=== PATIENT | female | born 1995 | race Caucasian/White ===

== ENCOUNTER → 2017-06-18 14:25 | Observation (INO) ==
[2017-06-18 13:41] LABS: Bilirubin,Urine Negative (Negative); Blood,Urine Negative (Negative); Clarity,Urine Cloudy (Clear); Color,Urine Yellow (Yellow); Glucose,Urine (UA) Normal (Normal); Ketones,Urine Negative (Negative); Leukocyte Esterase,Urine Moderate (Negative); Nitrite,Urine Negative (Negative); PH,Urine 7.5 pH Units (5.0-8.0); Protein,Urine Negative (Neg-Trace); Urobilinogen,Urine Normal (Normal)
[2017-06-18 13:45] LABS: Bacteria,Urine Few per hpf (None-Few); Hyaline Casts,Urine None Seen per lpf (None-Few); RBC,Urine 0-3 per hpf (0-3); Squamous Epithelial Cell,Urine Many per lpf (None-Few); WBC,Urine 15-30 per hpf (0-3)
[2017-06-18 13:55] LABS: Amphetamine Screen,Urine Negative ng/mL (Cutoff=1000); Barbiturate Screen,Urine Negative ng/mL (Cutoff=200); Benzodiazepines Screen,Urine Negative ng/mL (Cutoff=200); Cannabinoid Screen,Urine Positive ng/mL (Cutoff = 50); Cocaine Screen,Urine Negative ng/mL (Cutoff= 300); Opiate Screen,Urine Negative ng/mL (Cutoff=300); Phencyclidine Screen,Urine Negative ng/mL (Cutoff=25)
--- NOTE | 2017-06-18 14:26 | OB/GYN Progress Note ---
Date of Encounter: 06/18/17 Time of Encounter: 14:18 - Assessment and Plan (1) Round ligament pain Current Visit: Yes Status: Acute Patient monitored for an hour, FHR 150's with moderate variability, cat 1 tracing. UA grossly contaminated, sent for culture. Advised patient that if culture grows anything we will call her and treat. Advised patient to purchase a maternity belt and wear it when she is up and active to help alleviate the pressure on the round ligament. Advised patient that chiropractic treatments could also help alleviate her pain. All questions were answered, patient agreeable to plan and will be discharged home. (2) 28 weeks gestation of Current Visit: Yes Status: Chronic Subjective - Subjective Principal diagnosis: Round ligament pain Interval history: Ms. Dillon is a 21 y/o F at 28 0/7 weeks who presents to L&D for evaluation of lower abdominal pain x4 days. She describes the pain as the pressure you feel when you are picking something heavy up and have to strain because it is too heavy. She has had a sore throat and wheezing for the last week. She has had nausea today and vomited twice. She still is smoking intermittently. She states that she has not had any vaginal fluid leaking, vaginal bleeding, foul smelling discharge or itching. She has good movement. She denies fevers, chills, cp, sob, dysuria, burning with urination, diarrhea. Antepartum ROS: new complaints, movement normal, no loss of fluid, no vaginal bleeding, no contractions Objective - Vital Signs Vital Signs: Intake and Output 06/17/17 06/18/17 06/18/17 23:59 07:59 15:59 Other: Weight 66.3 kg Patient Weight 06/18/17 23:59 Weight 66.3 kg - Exam FHR: auscultation normal, category 1 FHR comments: FHR 150's with moderate variability Auscultation: bilateral: normal Abdomen: Present: normal appearance, soft, gravid, tenderness (suprapubic, LLQ, RLQ) Uterus: Present: normal, firm - Labs Labs: Abnormal lab results Urine Clarity Cloudy (Clear) A 06/18/17 13:29 Ur Leukocyte Esterase Moderate (Negative) H 06/18/17 13:29 Urine Microscopic WBC 15-30 per hpf (0-3) H 06/18/17 13:29 Ur Squamous Epith Cells Many per lpf (None-Few) H 06/18/17 13:29 Ur Culture Indicated? YES (NO) A 06/18/17 13:29 U Marijuana (THC) Screen Positive ng/mL (Cutoff = 50) H 06/18/17 13:29 - Allied health notes Allied health notes reviewed: nursing
== END | disposition home or self-care (01) ==
LOC: 1NENULAB
PROVIDERS: ADMIT Obstetrics & Gynecology; ATTEND Obstetrics & Gynecology

== ENCOUNTER 2017-08-15 14:19 | Inpatient (IN) ==
[2017-08-15 15:16] LABS: Bilirubin,Urine Small (Negative); Blood,Urine Negative (Negative); Clarity,Urine Cloudy (Clear); Color,Urine Dark Yellow (Yellow); Glucose,Urine (UA) Normal (Normal); Ketones,Urine 15 mg/dL (Negative); Leukocyte Esterase,Urine Large (Negative); Nitrite,Urine Negative (Negative); PH,Urine 6.5 pH Units (5.0-8.0); Protein,Urine Trace mg/dL (Neg-Trace); Specific Gravity,Urine 1.019 (1.010-1.025); Urobilinogen,Urine Normal (Normal)
[2017-08-15 15:17] LABS: Bacteria,Urine Many per hpf (None-Few); Hyaline Casts,Urine Few per lpf (None-Few); Squamous Epithelial Cell,Urine Many per lpf (None-Few); WBC,Urine 50-100 per hpf (0-3)
[2017-08-15 15:27] LABS: Amphetamine Screen,Urine Negative ng/mL (Cutoff=1000); Barbiturate Screen,Urine Negative ng/mL (Cutoff=200); Benzodiazepines Screen,Urine Negative ng/mL (Cutoff=200); Cannabinoid Screen,Urine Positive ng/mL (Cutoff = 50); Cocaine Screen,Urine Negative ng/mL (Cutoff= 300); Opiate Screen,Urine Negative ng/mL (Cutoff=300); Phencyclidine Screen,Urine Negative ng/mL (Cutoff=25)
[2017-08-15 15:36] LABS: RBC,Urine 0-3 per hpf (0-3)
[2017-08-15] MEDS ORDERED: Famotidine 20 MG/2 ML VIAL IVP PRN (15:47)
[2017-08-15] MEDS ORDERED: Naloxone 0.4 MG/ML INJ IVP PRN (15:47)
[2017-08-15] MEDS ORDERED: Penicillin G Potassium 5,000,000 UNIT in 0.9 % Sodium Chloride Mini Bag 100 ML IVPB ONE (15:52)
[2017-08-15] MEDS ORDERED: Ringers Solution, Lactated 1,000 ML IVC SCH (16:00)
[2017-08-15 16:05] LABS: Basophils % 0.2 %; Eosinophils # 0.1 K/mcL (0.0-0.6); Eosinophils % 0.5 %; Hematocrit 34.7 % (35.3-44.9); Hemoglobin 11.9 g/dL (11.5-15.4); Immature Granulocytes % 0.3 % (0-4); Lymphocytes # 1.8 K/mcL (0.6-4.6); Lymphocytes % 19.2 %; Mean Corpuscular HGB Conc 34.3 g/dL (31.6-35.5); Mean Corpuscular Hemoglobin 29.8 pg (28.0-33.3); Mean Corpuscular Volume 86.8 fL (83.0-100.0); Mean Platelet Volume 10.7 fL (9.4-12.4); Monocytes # 0.8 K/mcL (0.0-1.3); Monocytes % 8.2 %; Neutrophils # 6.8 K/mcL (1.6-8.9); Platelet Count 251 K/mcL (140-400); Red Cell Distribution Width 13.1 % (11.5-14.5); Segmented Neutrophils % 71.6 %
--- NOTE | 2017-08-15 16:07 | OB/GYN History & Physical ---
Date of Encounter: 08/15/17 Time of Encounter: 16:01 Assessment and Plan (1) 36 weeks gestation of Current visit: Yes Status: Acute (2) Tobacco use affecting in third trimester, antepartum Current visit: Yes Status: Acute (3) labor in third trimester without delivery Current visit: No Status: Acute Admit for labor at 6cm/100/-1 GBS ppx. Epidural when requested. Anticipate (4) GBS screening not performed Current visit: Yes Status: Acute PCN ppx History of Present Illness Chief complaint: contractions HPI: Ms. Dillon is a 21 year old female presenting at 36w2d with c/o contractions since 9pm last evening. She also reports a couple small gushes of clear discharge. Good FM. No other complaints today. EFW 20% last week in office. also complicated by itching but bile acids WNL. She does have some old bite dixon that are concerning for bedbugs. She does admit to smoking 1 /2 PPD and her UDS was positive for marijuana. Blood type B negative. Rubella non-immune Serologies negative GBS unknown, rapid collected today Past Med Surg Social Fam HX - Past Medical History Medical history: no medical history Psychiatric history: anxiety - Past Surgical History Surgical History: other - Social History Smoking Status: Current every day smoker Packs per day: 0.5 Smokeless Tobacco Status: No Alcohol use: none Drug use: marijuana - Family History Grandmother Family Member Ethnicity: Non- Living Status: Still Living Hx Family Cardiac Disorders: No Hx Family Respiratory Disorders: No Hx Family Cancer: No Hx Family GI Disorders: No Hx Family Endocrine Disorder: No Hx Family Neuromuscular Disorders: No Hx Family Neurologic Disorders: No Hx Family HEENT Disorders: No Hx Family Autoimmune Disorders: No Obstetrical History - Pregnancies : 2 Para: 1 Term: 0 : 1 Ab's: 0 Livin - History/Complications History/Complications: Previous delivery at 35 weeks gestation Medications and Allergies Pediatric Multivit Comb. No.49 [Flintstones Gummies] 1 each PO DAILY 05/26/16 [ History] 3 Allergy/AdvReac Type Severity Reaction Status Date / Time No Known Allergies Allergy Verified 12/10/15 17:27 Review of System OB All systems PM: reviewed and no additional remarkable complaints except as stated Exam - Constitutional Constitutional: well developed, well nourished, mild distress - HEENT HEENT: Mucus Membranes Moist - Lungs Respiratory exam: CTAB - Cardiovascular Cardiovascular exam: RRR, +S1, +S2 - Abdomen Abdomen: Present: bowel sounds normal, gravid, non tender - Extremities Extremities exam: normal inspection (small scars, appear to be old bites) - Vulva Vulva: bilateral: normal (thick yellow discharge noted, nitrazine equivocal) - Vagina Vagina: Present: normal moisture - Cervix Dilation: 6 Effacement: 100 Station: -1 - Uterus Uterus exam: Present: normal size - Anus/Rectum Anus/Rectum: Present: normal perianal skin Results Abnormal lab results Urine Clarity Cloudy (Clear) A 08/15/17 15:13 Urine Ketones 15 mg/dL (Negative) H 08/15/17 15:13 Urine Bilirubin Small (Negative) H 08/15/17 15:13 Ur Leukocyte Esterase Large (Negative) H 08/15/17 15:13 Urine Microscopic WBC 50-100 per hpf (0-3) H 08/15/17 15:13 Ur Squamous Epith Cells Many per lpf (None-Few) H 08/15/17 15:13 Urine Bacteria Many per hpf (None-Few) H 08/15/17 15:13 U Marijuana (THC) Screen Positive ng/mL (Cutoff = 50) H 08/15/17 15:14 All other labs normal. - VTE Reasons for not Prescribing Prophylaxis: Treatment not Indicated - Low risk for VTE
[2017-08-15] MEDS ORDERED: Epidural Premix (fent/bupiv) 110 ML EP ONE ×2 (16:30→20:45)
--- NOTE | 2017-08-15 16:55 | Anesthesia Evaluation PreOp ---
Date of Encounter: 08/15/17 Time of Encounter: 16:41 - Past History Planned Operation: vaginal del, spont 36wks Cardiac History: Denies any Significant Hx Pulmonary History: Denies Any Significant HX HOME SERVICE DEMONSTRATOR History: Denies Any Significant HX Other Medical History: Other (chronic back pain, no radiculopathy reported.) Anesthesia History: No Prior Anesthetic Complications, Past Anesthesia Alcohol Use: none Drug use: marijuana Medications and Allergies Pediatric Multivit Comb. No.49 [Flintstones Gummies] 1 each PO DAILY 05/26/16 [ History] 3 Allergy/AdvReac Type Severity Reaction Status Date / Time No Known Allergies Allergy Verified 12/10/15 17:27 Anesthesia Results - Labs 08/15/17 15:52 Anesthesia Exam - HEENT Pupil (Motor): Pupils equal Mallampati: II Teeth: Normal Oral Opening: Greater than 3 - HOME SERVICE DEMONSTRATOR LOC: Oriented HOME SERVICE DEMONSTRATOR Motor: Normal RUE, Normal LUE, Normal RLE, Normal LLE, Normal Face HOME SERVICE DEMONSTRATOR Sensory: Normal: RUE, LUE, RLE, LLE, Face - Cardiac Rhythm: Regular Murmur: None - Pulmonary Breath Sounds: bilateral Clear Respiratory Effort: Symmetrical Anesthesia Assess/Plan ASA Score: 2 Modified [place] Scale for Level of Consciousness: Cooperative, oriented, and tranquil Anesthetic Plan: General, Regional Monitoring Plan: Standard Monitors
--- NOTE | 2017-08-15 16:58 | Anesthesia Procedures ---
Date of Encounter: 08/15/17 Time of Encounter: 16:41 Procedures: Anesthesia - Epidural/Spinal Patient ID/Chart reviewed: Yes Patient examined: Yes OB Eval: Gestational age: 36 OB Eval: : 2 OB Eval: Hx Para: 1 OB Eval: Contractions: Non-stressed pattern Supplemental Oxygen: None/Room Air Site Prep: Aseptic Technique, Sterile prep and drape, 0.5% Chlorhexidine/Alcohol Patient position: upright Local Anesthetic: Lidocaine 1% Amount of Local Anesthetic used: 2 Touhy Needle Gauge: 18 Touhy Needle Depth (cm): 6 Catheter Depth at Skin (cm): 10 Test Dose (1.5% Lido + Epi): Volume given (mls): 3 Test Dose Result: Negative Loading Dose: Other: 12 from solution Loading Dose Administered: Thru Catheter Infusion Med: 0.125% Bupivacaine w/ 2 mcg/ml Fentanyl Infusion Rate (mls/hr): [address]: Tegaderm, Tape Interspace Used: L3-L4 Loss of Resistance (JENNY): Yes (saline) Blood: No CSF: No Paresthesia: No Procedure: vss though out, FHR stable per RN's
[2017-08-15] MEDS ORDERED: Ondansetron 4 MG/2 ML VIAL ONE (17:14)
[2017-08-15] MEDS ORDERED: Penicillin G Potassium 2,500,000 UNIT in D5% in Water 100 ML IVPB SCH (20:00)
--- NOTE | 2017-08-15 22:29 | OB Labor Progress Note ---
Date of Encounter: 08/15/17 Time of Encounter: 22:27 Labor Progress Note - Subjective Subjective: Pt comfortable with epidural - Cervix Cervix: 8/100/0 - Heart Tones Heart Tones: Category I - [place]: 2-3 minutes - Interventions Interventions: AROM for large amount clear fluid - Plan Plan: Continue to monitor. Anticipate .
[2017-08-15] MEDS ORDERED: Oxytocin 20 units/ LR 1000 mL 20 UNIT/1,000 ML BAG IVC ONE (22:55)
--- NOTE | 2017-08-15 23:39 | OB/GYN Procedure Note ---
Delivery - Delivery Date: 08/15/17 Provider: Shannon Powell Intrapartum events: none Delivery induction: none Delivery augmentation: rupture of membranes (at 8cm) Delivery monitor: external FHT, external uterine Anesthesia: epidural Estimated Blood Loss: 50 - Infant (s) A Delivery Date: 08/15/17 Delivery Time: 23:18 Presentation: vertex Position: TUAN Route of delivery: Gender: Male Viability: Viable Pounds: 5 Ounces: 0 Weight Gram: 2265 kg Shoulder Dystocia: not encountered Specimens collected: cord blood, venous cord gases, arterial cord gases Placenta: spontaneous Cord: 3 umbilical vessels - Repair Episiotomy: none Laceration Description: None - Complications Delivery complications: none Delivery comments: Pt pushed effectively to over intact perineum for viable male weighing 5 pounds with apgars 6 at one minute and 9 at five minutes. After a short delay the cord was milked and cut and the placenta delivered spontaneous and intact. No repair was needed. EBL 50ml. Mother and baby stable in DR following procedure. - Disposition Mom disposition: stable in LDR [place] disposition: stable in LDR
[2017-08-16] MEDS ORDERED: Oxytocin 20 units/ LR 1000 mL 20 UNIT/1,000 ML BAG IVC SCH (00:31)
[2017-08-16] MEDS ORDERED: Measles/Mumps/Rubella Vacc 0.5 ML VIAL SQ PRN (00:31)
[2017-08-16] MEDS ORDERED: Ibuprofen 600 MG TABLET PO PRN (00:31)
[2017-08-16] MEDS ORDERED: Acetaminophen 325 MG TABLET PO PRN (00:31)
[2017-08-16] MEDS ORDERED: Rho Immune Globulin 1,500 UNIT SYRINGE IM PRN (00:31)
[2017-08-16] MEDS ORDERED: Prenatal Vit/FA 1 EACH TABLET PO SCH (09:00)
--- NOTE | 2017-08-16 09:54 | OB/GYN Progress Note ---
Date of Encounter: 08/16/17 Time of Encounter: 09:48 - Assessment and Plan (1) Vaginal delivery Current Visit: Yes Status: Acute Patient awaiting BPS possible discharge home tomorrow Subjective - Subjective Principal diagnosis: Status post vaginal delivery Interval history: Patient resting in bed. Denies any pain at this time. Patient plans to have a BPS today. Patient aware of unknown time of surgery today. Patient to remain NPO Patient reports: voiding normally, pain well controlled, ambulating normally : doing well, nursing well, bottle feeding Objective - Latest Vital Signs Latest vital signs: Vital Signs Temp Pulse Resp BP Pulse Ox 08/16/17 09:14 98.3 F 65 16 111/72 08/16/17 03:45 98.5 F 62 14 112/62 100 08/16/17 02:45 99.0 F 67 14 109/59 100 08/16/17 01:45 98.6 F 72 16 106/58 99 08/16/17 01:30 98.3 F 87 14 115/70 99 08/16/17 01:15 98.2 F 70 14 120/69 100 08/16/17 01:00 98.7 F 71 14 101/61 99 08/16/17 00:45 98.9 F 75 16 106/59 100 Intake and Output 08/15/17 08/16/17 08/16/17 23:59 07:59 15:59 Output Total 1000 / 1000 Balance -1000 / -1000 Output: Urine 1000 / 1000 Other: Weight 63.5 kg Patient Weight 08/16/17 23:59 Weight 63.5 kg - Exam Lungs: bilateral: normal Extremities: Present: normal Abdomen: Present: normal appearance, soft, gravid Uterus: Present: normal, firm Uterus Position: At Umbilicus, Midline - Labs Labs: Laboratory Results - last 24 hr 08/15/17 08/15/17 08/15/17 15:13 15:14 15:50 WBC RBC Hgb Hct MCV MCH MCHC RDW Plt Count MPV Immature Gran % Seg Neutrophils % Lymphocytes % Monocytes % Eosinophils % Basophils % Neutrophils # Lymphocytes # Monocytes # Eosinophils # Basophils # Urine Color Dark Yellow Urine Clarity Cloudy A Urine pH 6.5 Ur Specific [place] 1.019 Urine Protein Trace Urine Glucose (UA) Normal Urine Ketones 15 H Urine Blood Negative Urine Nitrite Negative Urine Bilirubin Small H Urine Urobilinogen Normal Ur Leukocyte Esterase Large H Urine Microscopic RBC 0-3 Urine Microscopic WBC 50-100 H Ur Squamous Epith Cells Many H Urine Bacteria Many H Hyaline Casts Few Ur Culture Indicated? NO Urine Opiates Screen Negative Ur Barbiturates Screen Negative Ur Phencyclidine Scrn Negative Ur Amphetamines Screen Negative U Benzodiazepines Scrn Negative Urine Cocaine Screen Negative U Marijuana (THC) Screen Positive H Specimen Rejected Miscellaneous Screen Baby's Blood Type Mother's Blood Type Rhogam Indicated Rhogam Req for Mother 08/15/17 08/16/17 15:52 00:21 WBC 9.6 RBC 4.00 Hgb 11.9 Hct 34.7 L MCV 86.8 MCH 29.8 MCHC 34.3 RDW 13.1 Plt Count 251 MPV 10.7 Immature Gran % 0.3 Seg Neutrophils % 71.6 Lymphocytes % 19.2 Monocytes % 8.2 Eosinophils % 0.5 Basophils % 0.2 Neutrophils # 6.8 Lymphocytes # 1.8 Monocytes # 0.8 Eosinophils # 0.1 Basophils # 0.0 Urine Color Urine Clarity Urine pH Ur Specific [place] Urine Protein Urine Glucose (UA) Urine Ketones Urine Blood Urine Nitrite Urine Bilirubin Urine Urobilinogen Ur Leukocyte Esterase Urine Microscopic RBC Urine Microscopic WBC Ur Squamous Epith Cells Urine Bacteria Hyaline Casts Ur Culture Indicated? Urine Opiates Screen Ur Barbiturates Screen Ur Phencyclidine Scrn Ur Amphetamines Screen U Benzodiazepines Scrn Urine Cocaine Screen U Marijuana (THC) Screen Specimen Rejected Screen NEGATIVE Baby's Blood Type O RH POSITIVE Mother's Blood Type B RH NEGATIVE Rhogam Indicated YES Rhogam Req for Mother 1
--- NOTE | 2017-08-16 11:01 | Event Note ---
Date of Encounter: 08/16/17 Time of Encounter: 10:59 I came to evaluate and consent the patient for a schedule and on tubal. I noted the patient is not yet 22 years old. I discussed this with the patient and explained that she was not eligible to have a tubal yet. She will be turning 22 on 08[birth year]. She verbalizes understanding. She declines any long- acting reversible contraception at this time. She has been advised she will need to follow up with Dr. Pyle to discuss laparoscopic tubal ligation at her visit
[2017-08-16 11:16] LABS: Basophils % 0.3 %; Eosinophils # 0.1 K/mcL (0.0-0.6); Eosinophils % 0.7 %; Hematocrit 35.5 % (35.3-44.9); Hemoglobin 11.9 g/dL (11.5-15.4); Immature Granulocytes % 0.4 % (0-4); Immature Platelets 5.6 % (1.1-6.1); Lymphocytes # 2.4 K/mcL (0.6-4.6); Lymphocytes % 24.1 %; Mean Corpuscular HGB Conc 33.5 g/dL (31.6-35.5); Mean Corpuscular Hemoglobin 29.5 pg (28.0-33.3); Mean Corpuscular Volume 87.9 fL (83.0-100.0); Mean Platelet Volume 10.5 fL (9.4-12.4); Monocytes % 9.7 %; Neutrophils # 6.6 K/mcL (1.6-8.9); Platelet Count 234 K/mcL (140-400); Red Blood Count 4.04 M/mcL (3.82-4.97); Segmented Neutrophils % 64.8 %
[2017-08-16 19:46] VITALS: BP 117/74
--- NOTE | 2017-08-16 20:20 | Discharge Summary ---
Date of Encounter: 08/16/17 Time of Encounter: 20:17 - Discharge Diagnosis (1) Vaginal delivery Priority: Primary Status: Acute Comments: Continue routine care discharge home today per patient request follow up with Dr. Pyle in 4-6 weeks - Discharge Medications Home Medications: Pediatric Multivit Comb. No.49 [Flintstones Gummies] 1 each PO DAILY 05/26/16 [ History] Allergies/Adverse Reactions: 3 Allergy/AdvReac Type Severity Reaction Status Date / Time No Known Allergies Allergy Verified 12/10/15 17:27 Data Procedures and tests throughout hospitalization: Laboratory Tests 08/15/17 08/15/17 08/15/17 15:13 15:14 15:50 WBC RBC Hgb Hct MCV MCH MCHC RDW Plt Count MPV Immature Gran % Seg Neutrophils % Lymphocytes % Monocytes % Eosinophils % Basophils % Neutrophils # Lymphocytes # Monocytes # Eosinophils # Basophils # Immature Plt Fraction Urine Color Dark Yellow Urine Clarity Cloudy A Urine pH 6.5 Ur Specific [place] 1.019 Urine Protein Trace Urine Glucose (UA) Normal Urine Ketones 15 H Urine Blood Negative Urine Nitrite Negative Urine Bilirubin Small H Urine Urobilinogen Normal Ur Leukocyte Esterase Large H Urine Microscopic RBC 0-3 Urine Microscopic WBC 50-100 H Ur Squamous Epith Cells Many H Urine Bacteria Many H Hyaline Casts Few Ur Culture Indicated? NO Urine Opiates Screen Negative Ur Barbiturates Screen Negative Ur Phencyclidine Scrn Negative Ur Amphetamines Screen Negative U Benzodiazepines Scrn Negative Urine Cocaine Screen Negative U Marijuana (THC) Screen Positive H Specimen Rejected Miscellaneous Screen Baby's Blood Type Mother's Blood Type Rhogam Indicated Rhogam Req for Mother 08/15/17 08/16/17 08/16/17 15:52 00:21 11:08 WBC 9.6 10.1 RBC 4.00 4.04 Hgb 11.9 11.9 Hct 34.7 L 35.5 MCV 86.8 87.9 MCH 29.8 29.5 MCHC 34.3 33.5 RDW 13.1 13.0 Plt Count 251 234 MPV 10.7 10.5 Immature Gran % 0.3 0.4 Seg Neutrophils % 71.6 64.8 Lymphocytes % 19.2 24.1 Monocytes % 8.2 9.7 Eosinophils % 0.5 0.7 Basophils % 0.2 0.3 Neutrophils # 6.8 6.6 Lymphocytes # 1.8 2.4 Monocytes # 0.8 1.0 Eosinophils # 0.1 0.1 Basophils # 0.0 0.0 Immature Plt Fraction 5.6 Urine Color Urine Clarity Urine pH Ur Specific [place] Urine Protein Urine Glucose (UA) Urine Ketones Urine Blood Urine Nitrite Urine Bilirubin Urine Urobilinogen Ur Leukocyte Esterase Urine Microscopic RBC Urine Microscopic WBC Ur Squamous Epith Cells Urine Bacteria Hyaline Casts Ur Culture Indicated? Urine Opiates Screen Ur Barbiturates Screen Ur Phencyclidine Scrn Ur Amphetamines Screen U Benzodiazepines Scrn Urine Cocaine Screen U Marijuana (THC) Screen Specimen Rejected Screen NEGATIVE Baby's Blood Type O RH POSITIVE Mother's Blood Type B RH NEGATIVE Rhogam Indicated YES Rhogam Req for Mother 1 Labs on day of discharge: Labs from last 24 hours 08/16/17 08/16/17 11:08 00:21 WBC 10.1 RBC 4.04 Hgb 11.9 Hct 35.5 MCV 87.9 MCH 29.5 MCHC 33.5 RDW 13.0 Plt Count 234 MPV 10.5 Immature Gran % 0.4 Seg Neutrophils % 64.8 Lymphocytes % 24.1 Monocytes % 9.7 Eosinophils % 0.7 Basophils % 0.3 Neutrophils # 6.6 Lymphocytes # 2.4 Monocytes # 1.0 Eosinophils # 0.1 Basophils # 0.0 Immature Plt Fraction 5.6 Screen NEGATIVE Baby's Blood Type O RH POSITIVE Mother's Blood Type B RH NEGATIVE Rhogam Indicated YES Rhogam Req for Mother 1 Date of admission: 08/15/17 14:19 Primary care physician: PCP NONE Consults: 08/16/17 00:31 Consult to Machine Shop Worker [CONS] Routine Comment: Vaginal delivery, consult needed Consult to Platform Consultant [CONS] Routine Reason for SW Consult: marijuana use Discharging clinician: Rufina Camp Anticipated date of discharge: 08/16/17 - Patient Status Disposition: Home, Self-Care Condition: Good - Discharge Instructions Follow Up With: NONE,PCP [Primary Care Provider] - Yanelis Pyle MD [Partnered Physician] - - Diet and Activity Activity: increase activity as tolerated Diet: regular diet Hospital Course Delivery: Episiotomy: none Laceration: none Other procedures: none complications: none Discharge diagnosis: delivery [place] baby: male Time Attestation: Total time spent providing and/or coordinating discharge services: Time Spent: Less than 30 minutes Exam - Constitutional Vitals: Temp Pulse Resp BP Pulse Ox 97.7 F 88 16 117/74 98 08/16/17 19:00 08/16/17 19:00 08/16/17 19:00 08/16/17 19:00 08/16/17 19:00 General appearance IM: A&O X 3, pleasant, answers questions appropriately - Respiratory Respiratory exam: Present: CTAB - Cardiovascular Cardiovascular exam IM: Present: RRR - Uterine Tone: Firm Uterus Position: 1 Finger Below Umbilicus, Midline
== END 2017-08-16 21:05 | disposition home or self-care (01) | DRG 560 ==
LOC: 1NENULAB → OBSVTOIN 14:19 → 1NENUOBS 08-16 01:29
PROVIDERS: ADMIT Student in an Organized Health Care Education/Training Program; ATTEND Student in an Organized Health Care Education/Training Program